=== PATIENT | female | born 1945 | race Caucasian/White ===

== ENCOUNTER 2018-07-27 12:54 | Emergency (ER) | payer MEDICARE, OTHER ==
[~2018-07-27] VITALS: Ht 162.6 cm; Wt 68.0 kg
[2018-07-27] MEDS ORDERED: Vibramycin100 MG PO (13:16)
== END 2018-07-27 13:36 | disposition home or self-care (01) ==
LOC: ER 12:54
DX: S50.361A Insect bite (nonvenomous) of right elbow, initial encounter (principal); L03.113 Cellulitis of right upper limb; W57.XXXA Bitten or stung by nonvenomous insect and other nonvenomous arthropods, initial encounter
CPT/HCPCS: 99283